=== PATIENT | male | born 1980 | race African-American/Black ===

== ENCOUNTER 2021-07-09 19:31 | Inpatient (IN) | payer OTHER ==
[~2021-07-09] VITALS: Ht 185.4 cm; Wt 99.8 kg
--- NOTE | ~2021-07-09 | EMS ---
[address] [address] EMS Patient Care Report Name: SOFYA REED Room #: 204-P ADM IN M.R.#: [id number] Admission: 07/10/21 Attend Phys: Se Mcdaniel MD Discharge: Date of : 82 Report #: [id number] THIS REPORT FOR: //name// Report Transmitted: 07/12/2021 10:30 EMS Care Summary [place], [place]/[facility] Incident [id number] @ 07/09/2021 18:56 Incident Location [address] [address] Patient SOFYA REED Male, 41 Years 1980 Patient Address [facility] [address] [place] [address] Patient History None Reported, Patient Allergies No known allergies, Patient Medications None Reported, Chief Complaint overdose3 Disposition Transported No Lights/[place] Reason Overdose/Poisoning/Ingestion Transported To [facility] Narrative 41 y/o male possible OD Upon arrival the was sitting hand cuffed on the ground next to his car. He is manic talking randomly and answering questions correctly when asked. He is [address] [address] EMS Patient Care Report Name: SOFYA REED Room #: 204-P ADM IN M.R.#: [id number] Admission: 07/10/21 Attend Phys: Se Mcdaniel MD Discharge: Date of : 82 Report #: [id number] A&O x 4 with a GCS of 15. He had a bunch of empty Adderall bottles in his vehicle. The pt was cooperative but manic. The pt stood up and ambulated to the ambulance on his own with a steady gait. He sat on the bench seat VS were obtained. His hand cuffs were removed and multiple blood sugars were attempted. The batteries kept dying. The pt was transported to [place] per PD request Upon entering the triage area Cristiana asked my 'why are you bringing patients here and accused me of picking on them"? I responded "because PD wanted him to come here since were a few blocks from [place] and I also aske her if this was a hospital? Report was given with multiple witnesses and EMS returned to service. Initial Vitals @19:23P: 110,R: 20,Pain: 0/10,GCS: 15,SpO2: 100, Assessments @19:17MENTAL:Event Oriented,Person Oriented,Place Oriented,Time Oriented,SKIN:HEENT:Head/Face: No Abnormalities,Neck/Airway: No Abnormalities,LUNG SOUNDS:General: No Abnormalities,Left Upper: No Abnormalities,Right Upper: No Abnormalities,Left Lower: No Abnormalities,Right Lower: No Abnormalities,ABDOMEN:General: No Abnormalities,Left Upper: No Abnormalities,Right Upper: No Abnormalities,Left Lower: No Abnormalities,Right Lower: No Abnormalities,PELVIS//GI:No Abnormalities,EXTREMITIES:Capillary Refill: Right Upper: < 2 Sec,Capillary Refill: Left Upper: < 2 Sec,Left Arm: No Abnormalities,Right Arm: No Abnormalities,Left Leg: No Abnormalities,Right Leg: No Abnormalities,PULSE:Radial: 2+ Normal,NEURO:No Abnormalities, Impression Behavioral/psychiatric episode Procedures @19:16 ALS Assessment Response: UnchangedSucceeded Timeline 18:55,Call Received 18:55,Dispatch Notified 18:56,Dispatched 18:57,En Route 19:05,On Scene 19:06,At Patient 19:16,ALS Assessment,Response: UnchangedSucceeded, 19:18,Depart Scene 19:23,BP: / M,PULSE: 110,RR: 20 R,SPO2: 100 Ox,ETCO2: ,BG: ,PAIN: 0,GCS: 15, 19:24,At Destination 19:40,Call Closed [facility] [address] [place] [address] EMS Patient Care Report Name: SOFYA REED Room #: 204-P ADM IN M.R.#: [id number] Admission: 07/10/21 Attend Phys: Se Mcdaniel MD Discharge: Date of : 82 Report #: [id number] Disclaimer v1.1 Copyright 2021 [employer] This EMS Care Summary contains data elements from the applicable legal record (which may be displayed differently). It is designed to provide pertinent information for the following purposes: continuity of care, clinical quality, and state data reporting. The complete legal record is available to ED staff and administrators of the receiving hospital in [employer] Patient Tracker. All data is provided "as is."
[2021-07-09 19:32] VITALS: BP 138/88
[2021-07-09] MEDS ORDERED: ADDERALL 10 MG10 MG PO (19:38)
[2021-07-09] MEDS ORDERED: ALPRAZOLAM PO (19:39)
[2021-07-09 21:03] LABS: HEMATOCRIT 43.2 % (42.0-52.0); HEMOGLOBIN 14.5 gm/dL (14.0-18.0); MCH 31.4 pg (26.0-34.0); MCHC 33.5 g/dL (28.0-37.0); MCV 93.7 fL (80.0-100.0); RBC 4.61 mil/uL (4.50-6.00); RDW 15.5 % (10.5-14.5); WBC 8.6 thou/uL (4.0-11.0)
[2021-07-09 21:06] LABS: ANION GAP 15 mmol/L (7-16); BUN 20 mg/dL (7-18); CALCIUM 9.9 mg/dL (8.5-10.1); CHLORIDE 101 mmol/L (98-107); CO2 25 mmol/L (21-32); CREATININE 1.5 mg/dL (0.7-1.3); GLUCOSE 97 mg/dL (74-106); POTASSIUM 3.6 mmol/L (3.5-5.1); SODIUM 141 mmol/L (136-145)
[2021-07-09 21:13] LABS: URINE BLOOD 1+ (Negative); URINE CLARITY CLOUDY; URINE COLOR YELLOW; URINE GLUCOSE-RANDOM* NEGATIVE (Negative); URINE KETONES 1+ (Negative); URINE LEUKOCYTES-REFLEX NEGATIVE (Negative); URINE PROTEIN (DIPSTICK) 2+ (Negative); URINE SPECIFIC GRAVITY >= 1.030 (1.005-1.035)
[2021-07-09 21:16] LABS: ALBUMIN 4.6 g/dL (3.4-5.0); MAGNESIUM 2.2 mg/dL (1.8-2.4); PHOSPHORUS 3.2 mg/dL (2.6-4.7); SALICYLATE < 2.8 mg/dL (2.8-20.0); SGOT 56 U/L (15-37); SGPT 48 U/L (16-63); TOTAL BILIRUBIN 1.5 mg/dL (0.2-1.0); TOTAL PROTEIN 8.8 g/dL (6.4-8.2)
[2021-07-09 21:17] LABS: ICTOTEST (BILI CONFIRMATORY) Negative (Negative); URINE BILIRUBIN NEGATIVE (Negative); URINE NITRITE-REFLEX POSITIVE (Negative)
[2021-07-09 21:31] LABS: AMP/METHAMP POSITIVE (Negative); BARBITURATES Negative (Negative); BENZODIAZEPINES POSITIVE (Negative); COCAINE POSITIVE (Negative); METHADONE Negative (Negative); OPIATES Negative (Negative); PCP Negative (Negative)
[2021-07-09 21:33] LABS: CASTS None Seen /LPF (None Seen); SQUAMOUS 0-3 Few /LPF (0-3)
[2021-07-09 21:34] LABS: AMORPHOUS URATES Moderate /LPF (None Seen); BACTERIA-REFLEX >30 Many /HPF (None Seen); URINE RBC 1-2 Rare /HPF (NONE SEEN); URINE WBC-REFLEX 0-5 Rare /HPF (0-5)
[2021-07-10 05:23] VITALS: BP 125/64
[2021-07-10 06:00] VITALS: BP 108/66
--- NOTE | 2021-07-10 06:56 | NUR ---
PT ADMITTED TO ROOM 204 FROM ER, ORIENTED TO ROOM AND UNIT, VS AND WT COMPLETED, STARTED ADMISSION ASSESSMENT AND PT UNABLE TO ANSWER ALL QUESTIONS COHERENTLY KEEPS ASKING FOR ICE CREAM OR GRUNTS NOISES AND FALLS ASLEEP, REPORT GIVEN TO NEXT SHIFT TO CON'T TO MONITOR PER PPOC
--- NOTE | 2021-07-10 10:31 | EKG ---
[place] [address] [facility] [place] [address] ELECTROCARDIOGRAM REPORT Name: SOFYA REED Room #: 204-P ADM IN M.R.#: [id number] Admission: 07/10/21 Attend Phys: Nadia Bourgeois MD Discharge: Date of : 82 Report #: [id number] [facility] ED Test Date: 2021-07-09 Test Time: 21:50:49 Pat Name: SOFYA REED Department: Room: 204 Gender: M Cardiac Nurse Specialist: mpark : 1980 Requested By: Marcellus Rey Order Number: [id number] MD: Sal Uribe Measurements Intervals [place] Rate: 107 P: 51 DE: 130 QRS: 24 QRSD: 85 T: -9 QT: 320 QTc: 427 Interpretive Statements Sinus tachycardia Multiple premature complexes, vent & supraven Borderline T abnormalities, inferior leads Baseline wander in lead(s) I,II,aVR No previous ECG available for comparison Electronically Signed On 07-10-2021 10:31:30 CHARGEBACK ANALYST by Sal Uribe [email or web address] <ELECTRONICALLY SIGNED> By: Sal Uribe MD, [facility] 07/10/21 1031 49 49 Sal Uribe MD, FACC /EPI
--- NOTE | 2021-07-10 16:38 | NUR ---
TOOK OVER CARE OF THIS PATIENT AT 0700. PT HAS BEEN SLEEPING IN BED; PT OFTEN RESTLESS IN BED. PRN MEDICATION ADMINISTERED PER ORDERS. VSS. ASSESSMENTS CHARTED. PT GAVE CONTACT INFORMATION FOR HIS MOTHER; THIS NURSE ATTEMPTED TO CALL BUT WAS NOT ABLE TO GET SOMEONE; LEFT MESSAGE WILL CALL BACK NUMBER. PT DENIES PAIN BUT OFTEN GRUNTS AND SPEECH INCOMPREHENDABLE. FALL PRECAUTIONS IN PLACE AND CALL LIGHT WITHIN REACH.
--- NOTE | 2021-07-10 19:29 | NUR ---
BLADDER SCAN PERFORMED ON THIS PATIENT AT 1800. PT HAD NOT URINATED DURING THE SHIFT. BLADDER SCAN RESULTED IN 697ML; ENCOURAGED PATIENT TO VOID PER THE URINAL. PT VOIDED APPROX 600 ML OF HOLLIS/TEA COLORED URINE. PT SITTING UP IN BED EATIND DINNER. PT ATE 100%. PATIENT AXOX4 AT THIS TIME. RESPONDS APPROPRIATLEY TO QUESTIONS BUT SPEECH IS DIFFICULT TO COMPREHEND AT TIMES. FALL PRECAUTIONS IN PLACE AND CALL LIGHT WITHIN REACH.
[2021-07-10 20:05] VITALS: BP 140/85
--- NOTE | 2021-07-11 04:26 | NUR ---
RECEIVED PATIENT AT 1900H.ASSESSMENT DONE CHARTED.PATIENT SOMETIMES GETS RESTLESS WHILE LYING IN BED, PRN MEDICINE GIVEN ORDERED.MEDS GIVEN PER AUG.FALL PREVENTION MEASURES MAINTAINED.ALL NEEDS ATTENDED.TO CONTINOUSLY MONITOR.
[2021-07-11 04:45] VITALS: BP 131/52
[2021-07-11 04:52] LABS: HEMATOCRIT 38.3 % (42.0-52.0); HEMOGLOBIN 12.8 gm/dL (14.0-18.0); MCH 31.5 pg (26.0-34.0); MCHC 33.4 g/dL (28.0-37.0); MCV 94.4 fL (80.0-100.0); RBC 4.05 mil/uL (4.50-6.00); WBC 3.4 thou/uL (4.0-11.0)
[2021-07-11 04:55] LABS: CALCIUM 8.5 mg/dL (8.5-10.1); CREATININE 1.2 mg/dL (0.7-1.3); POTASSIUM 3.3 mmol/L (3.5-5.1)
[2021-07-11 09:41] VITALS: BP 119/71
[2021-07-11 12:22] VITALS: BP 131/92
--- NOTE | 2021-07-11 15:11 | NUR ---
PATIENT ADMITTED FOR METHAMPHETAMINE OD, LUIS ALFREDO, TACHYCARDIA. CHART REVIEWED AND DISCUSSED WITH CARE TEAM. PT RESTING WITH EYES CLOSED. CM SPOKE TO ARTURO WITH [facility] TO CONFIRM CONSULT. FERDINAND MURPHY WILL COME SEE PT TOMORROW. PER DR SINGLETON NOTES SHE WILL CONSULT WITH PHARM FOR MED CLARIFICATION WELL CALL PTS MOM. CM WILL CONTINUE TO FOLLOW FOR DC PLANNING.
[2021-07-11 16:35] VITALS: BP 138/93
[2021-07-11 19:53] VITALS: BP 127/77
[2021-07-12 03:29] VITALS: BP 126/79
[2021-07-12 09:27] VITALS: BP 133/78
--- NOTE | 2021-07-12 12:05 | NUR ---
PT ALERT AND ORIENTED TIMES FOUR. VSS, IVF INFUSING PER ORDER. PT DENIES PAIN/SOA AT THIS TIME. PT TOLERATES MEDS AND MEALS. POSSIBLE PLANS TO DISCHARGE TODAY. WILL CONTINUE TO MONITOR.
[2021-07-12 12:07] VITALS: BP 147/80
--- NOTE | 2021-07-12 13:42 | NUR ---
CM SPOKE WITH FERDINAND FROM [facility] THIS DAY. SHE INDICATED PT [place] LIVING WITH HIS PARENTS IN [place]. HE IS HERE WITH THEM TRYING TO GET HOUSING THROUGH [facility]. PRIOR TO LIVING WITH HIS PARENTS RECENTLY HE IS FROM [facility]. SHE INDICATES PT IS VERY CONNECTED IN [facility] WITH RESOURCES. PER [facility] [place] IS TO REPORT AND CHECK IN. FERDINAND INDICATES PT HAS BEEN CHECKING IN DIRECTED. PT REPORTED TO FERDINAND AMPHETAMINES IN HIS SYSTEM WAS FROM THE ADDERALL. HE INDICATED HE DID USE A LITTLE COCAINE BUT DOES NOT REGULARLY USE. FERDINAND GAVE PT RESOURCES FOR COMPREHENSIVE AND REDISCOVER. CM WILL ALSO PLACE ON PT DC INSTRUCTIONS. FERDINAND REPORTS PT OKAY TO DC HOME WITH PARENTS ONCE MEDICALLY STABLE TO DC. CM WILL CONTINUE TO ASSESS FOR DC PLANNING.
[2021-07-12 19:32] VITALS: BP 141/97
[2021-07-12 23:12] VITALS: BP 141/97
[2021-07-13 03:35] VITALS: BP 131/79
--- NOTE | 2021-07-13 04:08 | NUR ---
alert and oriented, makes needs known, cooperative with cares, dad visited beginning of shift, pt had a shower, denies pain, assessments as charted, meds given by emar, progressing well towards discharge
[2021-07-13 07:30] VITALS: BP 119/74
[2021-07-13 08:00] VITALS: BP 119/74
[2021-07-13] MEDS ORDERED: TRAZODONE HCL50 MG PO (10:40)
--- NOTE | 2021-07-13 11:39 | NUR ---
Spoke with patient's father and stated he will be picking up the patient.
[2021-07-13 12:05] VITALS: BP 119/74
[2021-07-13 12:09] VITALS: BP 119/74
--- NOTE | 2021-07-13 12:41 | NUR ---
patient was safely discharged home with father. Both IV's were removed and alert and oriented x4
== END 2021-07-13 13:15 | disposition home or self-care (01) | DRG 918 ==
LOC: ER 19:31 → EROBS 07-10 00:14 → 2N 07-10 00:14
PROVIDERS: Emergency Medicine; Nurse Practitioner Family; ADMIT Hospitalist; ATTEND Hospitalist
DX: T43.621A Poisoning by amphetamines, accidental (unintentional), initial encounter (principal); N17.9 Acute kidney failure, unspecified; N39.0 Urinary tract infection, site not specified; F41.9 Anxiety disorder, unspecified; T43.625A Adverse effect of amphetamines, initial encounter; F14.90 Cocaine use, unspecified, uncomplicated; F17.210 Nicotine dependence, cigarettes, uncomplicated; F19.10 Other psychoactive substance abuse, uncomplicated; E87.6 Hypokalemia; Z20.822 Contact with and (suspected) exposure to COVID-19; Y92.89 Other specified places as the place of occurrence of the external cause; Z28.21 Immunization not carried out because of patient refusal
CPT/HCPCS: 10081; 10194